=== PATIENT | male | born 1975 | race African-American/Black ===

== ENCOUNTER 2021-05-06 10:13 | Emergency (ER) | payer OTHER ==
[~2021-05-06] VITALS: Ht 185.4 cm; Wt 102.2 kg
--- NOTE | 2021-05-06 11:12 | RAD ---
Three-view right foot radiographs 05/06/2021 CLINICAL HISTORY: Right foot pain. Heavy object dropped on right foot. AP, oblique and lateral digital radiographs of the right foot were obtained. No fracture or dislocati on of the right foot is seen. No radiopaque foreign body is noted. IMPRESSION: No fracture or dislocation of the right foot is seen. Electronically signed by: Rajesh Eng MD (05/06/2021 11:10 AM) [id number]
--- NOTE | 2021-05-06 11:40 | PHYS DOC ---
Past History Past Medical History: Sciatica Past Surgical History: No Surgical History Alcohol Use: None Adult General Chief Complaint Chief Complaint: FOOT INJURY PAIN HPI HPI Patient is a 46-year-old male patient presented to the ED today complaining of 10 out of 10 right great toe and second toe pain, symptoms began yesterday after he accidentally dropped a "heavy box" on it while at work. Patient will not define how heavy the box was. He states he believes "it was my own mistake". Patient states the pain is worse on weightbearing. He took his morning medicines which includes ibuprofen 800 mg with some relief. States the pain is worse on weightbearing. Describes the pain as sharp and intermittent. He states he is walking fine at about the right foot and triggering his sciatica pain. Review of Systems Review of Systems Constitutional: Denies fever or chills [] Musculoskeletal: Reports right second toe and great toe pain Integument: Denies rash or skin lesions [] Neurologic: Denies headache, focal weakness or sensory changes [] All other systems were reviewed and found to be within normal limits, except as documented in this note. Allergies Allergies Allergies Coded Allergies Type Severity Reaction Last Updated Verified [facility] Allergy Unknown 05/06/21 Yes Physical Exam Physical Exam Constitutional: Well developed, well nourished, no acute distress, non-toxic appearance. [] Skin: Warm, dry, no erythema, no rash. [] Back: No tenderness, no CVA tenderness. [] Extremities: Right foot with no obvious deformity, moderate bruising on the top of the right great toe and second toes especially around the MTP joint. Tenderness on palpation of the right toe and second toe. No navicular bone tenderness or tenderness on the base of the fifth metatarsal of the right foot, full range of motion to the right foot and toes. +2 right pedal pulse. Refill less than 2 seconds of Neurologic: Alert and oriented X 3, normal motor function, normal sensory function, no focal deficits noted. [] Psychologic: Affect normal, judgement normal, mood normal. [] Current Patient Data Vital Signs Vital Signs Date Time Temp Pulse Resp B/P (MAP) Pulse Ox O2 Delivery O2 Flow Rate FiO2 05/06/21 10:34 98.4 92 18 133/85 (101) 97 Room Air EKG EKG [] Radiology/Procedures Radiology/Procedures []PROCEDURE: FOOT RIGHT 3V Three-view right foot radiographs 05/06/2021 CLINICAL HISTORY: Right foot pain. Heavy object dropped on right foot. AP, oblique and lateral digital radiographs of the right foot were obtained. No fracture or dislocation of the right foot is seen. No radiopaque foreign body is noted. IMPRESSION: No fracture or dislocation of the right foot is seen. Electronically signed by: Rajesh Cisse MD (05/06/2021 11:10 AM) [id number] DICTATED AND SIGNED BY: RAJESH CISSE MD DATE: 05/06/21 110 CC: MARLY SCOTT APRN; PCP,NO ~MTH0 0 Heart Score C/O Chest Pain: N/A Risk Factors: Risk Factors: DM, Current or recent (<one month) smoker, HTN, HLP, family history of CAD, obesity. Risk Scores: Risk Factors: DM, Current or recent (<one month) smoker, HTN, HLP, family history of CAD, obesity. Course & Med Decision Making Course & Med Decision Making Pertinent Labs and Imaging studies reviewed. (See chart for details) This is a 46-year-old male patient presenting to the ED today complaining of right great toe and second toe pain, symptoms began yesterday after he dropped a heavy box on it. Right foot x-rays are negative for any acute findings. Discharge to home. 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 Departure Departure: Impression: Primary Impression: Contusion of right foot Disposition: HOME / SELF CARE / HOMELESS Condition: STABLE Referrals: PCP,NO (PCP) EMI BALTAZAR DPSadie follow up in one week Patient Instructions: Contusion, [id number] Additional Instructions: You were seen for right foot contusion. Your right foot x-rays are negative for any acute findings. Try to ice and elevate the extremity. Please continue taking your pain medicine at home. Follow-up with the provided foot doctor in 1 week if pain persists Problem Qualifiers Primary Impression: Contusion of right foot Encounter type: initial encounter Qualified Codes: S90.31XA - Contusion of right foot, initial encounter MARLY SCOTT APRN May 06, 2021 11:40
[2021-05-06 12:15] VITALS: BP 143/92
== END 2021-05-06 12:15 | disposition home or self-care (01) ==
LOC: ER 10:13
DX: S90.111A Contusion of right great toe without damage to nail, initial encounter (principal); S90.121A Contusion of right lesser toe(s) without damage to nail, initial encounter; Z88.8 Allergy status to other drugs, medicaments and biological substances; W20.8XXA Other cause of strike by thrown, projected or falling object, initial encounter; Y93.89 Activity, other specified; Y92.89 Other specified places as the place of occurrence of the external cause; Y99.8 Other external cause status
CPT/HCPCS: 73630; 99283